=== PATIENT | female | born 1980 | race African-American/Black ===

== ENCOUNTER 2016-08-03 23:27 | Inpatient (IN) ==
[2016-08-03] MEDS: LACTATED RINGERS 1,000 ML IV SCH (23:55)
[2016-08-04] MEDS ORDERED: ONDANSETRON 4 MG/2 ML VIAL IV PRN ×2 (00:09→09:06)
[2016-08-04] MEDS ORDERED: BUTORPHANOL 2 MG/ML VIAL IV PRN (00:09)
[2016-08-04] MEDS ORDERED: OXYTOCIN/LR 20 UNIT/1,000 ML BAG IV SCH (00:30)
[2016-08-04 01:02] LABS: Basophils % 0.1 % (0.0-0.8); Eosinophils % 0.6 % (0.00-10.9); Hematocrit 30.2 VOL% (35.7-47.0); Hemoglobin 9.7 GM/DL (12.0-16.0); Immature Granulocytes % 0.4 %; Immature Granulocytes Absolute 0.03 #; Lymphocytes # 2.2 10*3/uL (1.4-4.0); Lymphocytes % 30.1 % (21.3-54.2); Mean Corpuscular HGB Conc 32.1 GM/DL (32-36); Mean Corpuscular Hemoglobin 26 PG (27-34); Mean Corpuscular Volume 79.3 FL (87-102); Mean Platelet Volume 10.8 FL (9.6-12.0); Monocytes # 0.4 10*3/uL (0.11-0.8); Monocytes % 6.1 % (1.7-12.7); Neutrophils # 4.5 10*3/uL (1.4-7.4); Neutrophils % 62.7 % (38.7-73.9); Platelet Count 264 10*3/uL (130-400); Red Blood Count 3.81 10*6/uL (3.8-5.5); Red Cell Distribution Width 13.5 % (9.3-17.3); White Blood Count 7.2 10*3/uL (4.5-13.71)
[2016-08-04 01:31] LABS: Albumin 2.6 G/DL (3.4-5.0); Bilirubin,Total 0.5 MG/DL (0.2-1.0); Calcium 8.1 MG/DL (8.5-10.1); Osmolality,Calculated 286.6 MOS/KG (273-304); Total Protein 6.5 G/DL (6.4-8.3)
[2016-08-04] MEDS ORDERED: FAMOTIDINE 20 MG/2 ML VIAL IV ONE (01:51)
[2016-08-04] MEDS ORDERED: fentaNYL 2 MCG/ROPIV 0.2% EPID 150 ML EPIDURAL SCH (01:51)
[2016-08-04] MEDS ORDERED: ePHEDrine 50 MG/ML AMP IV PRN (01:51)
[2016-08-04] MEDS ORDERED: hydrOXYzine HCL 25 MG/1 ML VIAL IM PRN (01:51)
[2016-08-04] MEDS ORDERED: PROMETHAZINE 25 MG/1 ML VIAL IM ONE (01:51)
[2016-08-04] MEDS ORDERED: diphenhydrAMINE 50 MG/1 ML VIAL IV PRN ×2 (01:51)
[2016-08-04] MEDS ORDERED: CITRIC ACID/SODIUM CITRATE 30 ML UDCUP PO ONE (01:51)
[2016-08-04 03:19] LABS: Albumin 2.6 G/DL (3.4-5.0); Bilirubin,Total 0.9 MG/DL (0.2-1.0); Calcium 8.1 MG/DL (8.5-10.1); Total Protein 6.5 G/DL (6.4-8.3); Uric Acid 2.4 MG/DL (2.6-6.0)
[2016-08-04] MEDS: LACTATED RINGERS 1,000 ML IV SCH (03:42)
[2016-08-04 04:23] LABS: PT Patient Result 10.4 SECS; Partial Thromboplastin Time 33.1 SECS (0-40)
[2016-08-04 05:11] LABS: Apearance,Urine CLEAR (Clear); Bacteria,Urine Occasional /HPF (Few); Bilirubin,Urine Negative (Negative); Blood, Urine Small mg/dL (Negative); Glucose,Urine (UA) Negative (Negative); Ketones,Urine 80 mg/dL (Negative); Mucus,Urine Occasional /LPF (Occasional); Nitrite,Urine Negative (Negative); Protein,Urine Negative; RBC,Urine 2 /HPF (0-4); Squamous Epithelial Cell,Urine Occasional /HPF (0-10); Urine Color Straw (Yellow); Urine Specific Gravity 1.009 (1.001-1.035); Urine Urobilinogen < 2.0 EU/DL (0.2-1.0); WBC,Urine 1 /HPF (0-6)
[2016-08-04] MEDS ORDERED: ACETAMINOPHEN 325 MG TABLET PO PRN (09:06)
[2016-08-04] MEDS ORDERED: BENZOCAINE 20%/MENTHOL 0.5% SPRAY 56 GM CAN TOP PRN (09:06)
[2016-08-04] MEDS ORDERED: LANOLIN 50% CREAM 0.3 OZ TUBE TOP PRN (09:06)
[2016-08-04] MEDS ORDERED: BISACODYL 10 MG SUPP RECTAL PRN (09:06)
[2016-08-04] MEDS ORDERED: HYDROCORTISONE 2.5% RECTAL CREAM 30 GM TUBE TOP PRN (09:06)
[2016-08-04] MEDS ORDERED: WITCH HAZEL PADS 100/JAR TOP PRN (09:06)
[2016-08-04] MEDS ORDERED: oxyCODONE/ACETAMINOPHEN 5-325 MG TABLET PO PRN ×2 (09:06)
[2016-08-04] MEDS ORDERED: OXYTOCIN/LR 20 UNIT/1,000 ML BAG IV ONE (09:06)
--- NOTE | 2016-08-04 09:09 | Operative Note ---
Date of procedure: 08/04/16 Pre-op diagnosis: IUP at 39 weeks Post-op diagnosis: same Procedure: Spontaneous vaginal delivery Over an intact perineum patient delivered a liveborn female infant via spontaneous vaginal delivery. Baby's head was delivered in the ROBERT position. Baby's nose mouth bulb suctioned at perineum. Baby had a nuchal cord 1 which was easily reduced. Anterior posterior shoulders followed by the body were delivered with ease. A was placed onto the maternal abdomen with umbilical cord was doubly clamped and cut by the father. The. Placenta was delivered spontaneously and intact with three-vessel cord. The uterus was massaged was found be firm and contracted. Hemostasis found be adequate. End procedure all sponge lap needle and edge counts 2 patient and baby in stable condition. Apgars 8 and 9. Anesthesia: epidural Surgeon / Physician: Júnior Gonzalez Estimated blood loss: other (50 mL) Specimens: none sent Condition: stable Disposition: floor Results - Labs CBC & BMP: 08/04/16 00:28 08/04/16 00:28 Discharge Plan - Discharge Medications No Action Multivitamin () [ Vitamin] 1 tablet PO DAILY - Follow Up or Referral - Forms/Instructions
--- NOTE | 2016-08-04 09:10 | OB/GYN History & Physical ---
History of Present Illness Chief complaint: induction of labor at term History of present illness: Ms. Camara is a 35 year old female Home Medications Medication Instructions Recorded Confirmed Type Multivitamin () [ 1 tablet PO DAILY 12/29/15 08/04/16 History Vitamin] Allergies Allergy/AdvReac Type Severity Reaction Status Date / Time No Known Allergies Allergy Unverified 12/29/15 20:10 12 point system: reviewed and no additional remarkable complaints except as stated Medical,Surgical,& Family Hx - Medical History HEENT: History of: Eye Problem (WEARS GLASSES AND CONTACTS) No history of: HEENT Problems Reproductive: No history of: Ectopic , Complication - Surgical History Reproductive Surgeries: Patient denies;: Section - Family History Family History: Reports;: Family Diabetes (PGM), Family Stroke (PGM AND UNCLES) Denies;: Family Anesthesia Reaction - Social History Smoking Status: Never smoker Frequency of Alcohol Use: None Type of Drug Use: None 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 - Constitutional Vitals: Vital Signs Temp Pulse BP Pulse Ox 08/04/16 04:00 97.4 F L 74 157/86 98 General appearance: no acute distress - Head Head exam: Present: normocephalic - Neck Neck exam: Present: normal inspection - Respiratory Respiratory exam: Present: clear to auscultation bilaterally - Breast Breasts: as per HPI Menstruation: as per HPI - Cardiovascular Cardiovascular exam: Present: regular rate and rhythm - GI/Abdominal GI/Abdominal exam: Present: normal bowel sounds, soft - Extremities Exam Extremities exam: Present: normal inspection - Back Exam Back exam: Present: normal inspection - Neurological Exam Neurological exam: Present: alert - Psychiatric Psychiatric exam: Present: normal affect, normal mood - Skin Skin exam: Present: normal color, warm Assessment and Plan (1) Labor established Status: Acute Assessment and plan: admit with expected Current Visit: Yes (2) 39 weeks gestation of Status: Acute Current Visit: Yes Results - Labs CBC & BMP: 08/05/16 04:25 08/04/16 00:28 Quality Measures - VTE Contraindication to Pharmacological VTE Prophylaxis: Clinical assessment deems Pt at low risk, no prophalaxis needed
[2016-08-04] MEDS ORDERED: DIPH/TET/ACEL PERT BOOSTER VACCINE 0.5 ML VIAL IM ONE (10:00)
[2016-08-04] MEDS ORDERED: MEASLES/MUMPS/RUBELLA VACCINE 0.5 ML VIAL SUBCUT ONE (10:00)
[2016-08-04] MEDS ORDERED: RHO(D) IMMUNE GLOBULIN 300 MCG SYRINGE IM ONE (10:00)
[2016-08-04] MEDS: LABETALOL 100 MG TABLET PO SCH (12:25)
[2016-08-04] MEDS: POTASSIUM CHLORIDE 20 MEQ TABLET PO SCH (12:25)
[2016-08-05 04:48] LABS: Basophils % 0.2 % (0.0-0.8); Eosinophils # 0.1 10*3/uL (0.0-0.87); Eosinophils % 0.7 % (0.00-10.9); Hematocrit 27.4 VOL% (35.7-47.0); Hemoglobin 8.9 GM/DL (12.0-16.0); Immature Granulocytes % 0.3 %; Immature Granulocytes Absolute 0.03 #; Lymphocytes # 2.6 10*3/uL (1.4-4.0); Lymphocytes % 22.7 % (21.3-54.2); Mean Corpuscular HGB Conc 32.5 GM/DL (32-36); Mean Corpuscular Hemoglobin 26 PG (27-34); Monocytes # 0.7 10*3/uL (0.11-0.8); Monocytes % 6.2 % (1.7-12.7); Neutrophils # 7.9 10*3/uL (1.4-7.4); Neutrophils % 69.9 % (38.7-73.9); Platelet Count 224 10*3/uL (130-400); Red Blood Count 3.47 10*6/uL (3.8-5.5); Red Cell Distribution Width 13.6 % (9.3-17.3); White Blood Count 11.3 10*3/uL (4.5-13.71)
[2016-08-05] MEDS: IBUPROFEN 800 MG TABLET PO PRN ×3 (06:15→19:42)
[2016-08-05] MEDS: DOCUSATE SODIUM 100 MG CAPSULE PO SCH ×3 (09:45→21:35)
[2016-08-05] MEDS: POTASSIUM CHLORIDE 20 MEQ TABLET PO SCH ×3 (09:45→21:35)
[2016-08-05] MEDS: LABETALOL 100 MG TABLET PO SCH ×3 (09:45→21:35)
--- NOTE | 2016-08-05 16:06 | OB/GYN Progress Note ---
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 - Constitutional Vitals: Vital Signs Temp Pulse Resp BP Pulse Ox 08/05/16 12:00 20 08/05/16 11:37 97.2 F L 83 20 145/80 98 08/05/16 10:00 20 08/05/16 08:00 20 08/05/16 07:51 97.2 F L 68 20 147/81 97 08/05/16 04:00 98.6 F 79 18 158/78 98 08/05/16 02:00 18 08/05/16 00:00 99.1 F 77 20 149/77 98 08/04/16 20:00 99.2 F 67 20 166/75 98 08/04/16 18:00 20 - Antepartum / Post Post Exam Abdomen obstetrics: Present: bowel sounds normal Vagina: Present: normal moisture Uterus exam: Present: normal size, normal contour Anus/Rectum: Present: normal perianal skin - Head Head exam: Present: normocephalic - ENT ENT exam: Present: normal exam - Neck Neck exam: Present: normal inspection - Respiratory Respiratory exam: Present: clear to auscultation bilaterally - Cardiovascular Cardiovascular exam: Present: regular rate and rhythm - GI/Abdominal GI/Abdominal exam: Present: normal bowel sounds, soft - Extremities Exam Extremities exam: Present: normal inspection - Back Exam Back exam: Present: normal inspection - Neurological Exam Neurological exam: Present: alert - Psychiatric Psychiatric exam: Present: normal affect, normal mood - Skin Skin exam: Present: normal color, warm Results - Labs CBC & BMP: 08/05/16 04:25 08/04/16 00:28
--- NOTE | 2016-08-05 16:08 | Discharge Summary ---
Hospital Course - Hospital Course Hospital Course: This is a 29-year-old multiparous female who delivered a liveborn infant via spontaneous vaginal delivery. Hospital course unremarkable by day # 2 she was ready for discharge Diagnosis - Discharge Diagnosis (1) Labor established Status: Acute (2) 39 weeks gestation of Status: Acute (3) Vaginal delivery Status: Acute Specialty Discharge - Follow Up or Referrals Follow up with: Júnior Gonzalez MD [Physician] - 09/02/16 8:00 am Discharge Plan - Discharge Data Disposition: Disch To Home/Self Care Condition at Discharge: Stable Discharge Diet: advance to your usual diet Activity: resume usual activities as tolerated Hygiene: no restrictions Weight Bearing at Discharge: full weight bearing Driving: no restrictions Contact your physician if you experience:: fever over 101, Difficulty voiding, Redness or swelling, Nausea/Vomiting, Shortness of breath, Bleeding, pain uncontrolled by pain medications - Discharge Medications New Ibuprofen Tab [Motrin Tab] 800 mg PO Q6H PRN #60 tablet PRN Reason: Pain Moderate (4-7) No Action Multivitamin () [ Vitamin] 1 tablet PO DAILY - Follow Up or Referral Follow Up: Júnior Gonzalez MD [Physician] - 09/02/16 8:00 am - Forms/Instructions Exam - Constitutional Vitals: Period Temp Pulse Resp BP Sys/Barreto Pulse Ox Last 24 Hr 97.2 F-99.2 F 67-83 18-20 145-166/75-81 97-98 Discharge Results Labs on day of discharge: Labs from last 24 hours 08/05/16 04:25 WBC 11.3 D RBC 3.47 L Hgb 8.9 L Hct 27.4 L MCV 79.0 L MCH 26 L MCHC 32.5 RDW 13.6 Plt Count 224 MPV 11.0 Neut % (Auto) 69.9 Lymph % (Auto) 22.7 [place] % (Auto) 6.2 Eos % (Auto) 0.7 Baso % (Auto) 0.2 Neut # (Auto) 7.9 H Lymph # (Auto) 2.6 [place] # (Auto) 0.7 Eos # (Auto) 0.1 Baso # (Auto) 0.0 Immature Gran % 0.3 Nucleated RBC % 0.0 Immature Gran # 0.03 Nucleated RBCs # 0.00 DS: Provider Date of admission: 08/04/16 00:09 Primary care physician: . No PCP Attending physician on admission: Júnior Gonzalez MD Consults: 08/04/16 00:09 Consult to Anesthesiology [CONS] Routine Consulting Provider: Reason for Anesthesiology: Epidural Consult Comment: Epidural for pain managment 08/04/16 09:07 Consult to Geriatric Physical Therapist [CONS] Routine Consult Geriatric Physical Therapist: Breast Feeding Discharging clinician: Júnior Gonzalez MD
[2016-08-06] MEDS: IBUPROFEN 800 MG TABLET PO PRN (04:35)
[2016-08-06 07:18] VITALS: BP 136/75
[2016-08-06] MEDS: POTASSIUM CHLORIDE 20 MEQ TABLET PO SCH (08:47)
[2016-08-06] MEDS: DOCUSATE SODIUM 100 MG CAPSULE PO SCH (08:47)
[2016-08-06] MEDS: LABETALOL 100 MG TABLET PO SCH (08:47)
== END 2016-08-06 13:10 | disposition home or self-care (01) | DRG 775 ==
LOC: N.LDOUT 23:27 → N.LD 23:29 → N.OB 08-04 16:02
PROVIDERS: ADMIT Obstetrics & Gynecology; ATTEND Obstetrics & Gynecology